=== PATIENT | male | born 2000 | race Caucasian/White ===

== ENCOUNTER 2021-04-17 10:52 | Emergency (ER) | payer BC, SELFPAY ==
--- NOTE | ~2021-04-17 | CT_ITS ---
EXAMINATION: CT LUMBAR SPINE WITHOUT CONTRAST CLINICAL INFORMATION: Lifting injury COMPARISON: None TECHNIQUE: Axial images through the lumbar spine without contrast. Sagittal and coronal reconstructions on the technologist workstation were performed. This CT examination was performed using dose optimization techniques as appropriate, variously including the following: *Automated exposure control *Adjustment of mA and/or kV according to patient size (this includes techniques or standardized protocols for targeted exams where dose is matched to indication/reason for exam; i.e. extremities or head) *Use of iterative reconstruction technique DLP; 489 mGy-cm FINDINGS: Bone alignment is normal. No fracture or dislocation is seen. Spinal levels: T12-L1: Normal. L1-L2: Normal. L2-L3: Normal. L3-L4: Normal. L4-L5: There is broad-based diffuse disc bulge. No disc herniation is seen. Spinal canal, lateral recesses and neural foramen are patent. L5-S1: There is broad-based diffuse disc bulge. There may be a small left paracentral disc herniation. Spinal canal, lateral recesses and neural foramen are patent. Paraspinal soft tissues are normal. The bladder is well-distended. CT/CT lumbar spine wo con IMPRESSION: Diffuse disc bulge at L4-L5 and diffuse disc bulge and question small left paracentral disc herniation at L5-S1. Very distended bladder.
[2021-04-17 10:58] VITALS: BP 127/55; PULSE 80; RESP 18; TEMP 36.5; BMI 28.0
[2021-04-17] MEDS: NaPROXEN 500 MG TABLET PO (11:58)
[2021-04-17] MEDS: diazePAM 5 MG TABLET PO (11:58)
[2021-04-17 12:00] VITALS: PULSE 70; RESP 19; TEMP 36.4; O2SAT 99
--- NOTE | 2021-04-17 12:55 | ED_ITS ---
HPI - Back Pain/Injury General Chief Complaint: Back Pain/Injury Stated Complaint: back inj Time Seen by Provider: 04/17/21 11:09 Source: patient Mode of arrival: ambulatory Limitations: no limitations History of Present Illness HPI Narrative: 20-year-old male presenting to the ED with his mother at bedside after he was lifting weights approximately 255 lb yesterday when he had sudden onset of lower back pain worse on the left radiating to his left buttocks/left eye worse with walking mild relief which is laying down flat. Denies any other symptoms complaints or concerns related to this. MD elicited complaint: back pain and back injury Pertinent past history: recent trauma (lifting 255 lbs weight ) Onset (ago): day(s) (Since yesterday) Timing: constant and progressively worsening Severity: severe Pain scale (0-10): 10 Similar Symptoms Previously: No Quality: sharp, aching, spasming and throbbing Location: lumbar spine Radiation: buttocks and left upper leg Exacerbating factors: walking Relieving factors: immobilization and supine Context: while lifting Associated symptoms: numbness (To the left buttock/left upper leg) Work related injury: No Related Data Previous Rx's Medication Instructions Recorded acetaminophen 500 mg tablet 1,000 mg PO QID PRN #14 tab 04/17/21 (Tylenol Extra Strength) diazepam 10 mg tablet (Valium) 10 mg PO TID PRN #14 tab 04/17/21 lidocaine 5 % topical patch 1 patch TOPICAL DAILY #15 ea 04/17/21 (Lidoderm) naproxen 500 mg tablet 500 mg PO BID PRN #10 tab 04/17/21 oxycodone 5 mg tablet 5 mg PO Q6H PRN #14 tab 04/17/21 prednisone 20 mg tablet 40 mg PO DAILY 5 Days #10 tab 04/17/21 Allergies Allergy/AdvReac Type Severity Reaction Status Date / Time No Known Allergies Allergy Verified 04/17/21 11:09 Review of Systems Review of Systems: Constitutional : No trauma, No Weight loss, No Fever, No Chills, ENT/Mouth : No Hearing loss, No Ear Pain, No Nasal Congestion, No Sinus Pain, No Hoarseness, No sore throat, No Rhinorrhea, No Swallowing Difficulty Cardiovascular : No Chest Pain, No SOB Respiratory : No Cough, No Dyspnea Gastrointestinal : No Nausea, No Vomiting, No Diarrhea, No abdominal Pain, No Hematochezia, No Melena Genitourinary : No Dysuria, No Urinary Frequency, No Hematuria, No Urinary or Bowel Incontinence/retention Musculoskeletal : + Back pain, No neck pain, No joint stiffness, No joint swelling Skin : No Skin Lesions, No rash or signs of infection Neuro : No Weakness, + radiation, + Numbness, + Paresthesias, No headache, no loss of bowel or bladder incontinence, no saddle anesthesia, Focal weakness, No radiation Denies history of IV drug usage. Yes all other systems are reviewed and are negative [facility] Past Medical History Attestation statement: The following information was validated with the patient. Social History Social History Advance Directives: No Advance Directives Information Provided: No Physical Exam Vital Signs: Vital Signs: Last Vital Signs Temp 97.7 F 04/17/21 10:58 Pulse 80 04/17/21 10:58 Resp 18 04/17/21 10:58 BP 127/55 L 04/17/21 10:58 Body Mass Index 28.0 vital signs have been reviewed as normal and appeared to be correct. Blood pressure normal. Heart rate normal. Respiration rate normal. Temperature normal. Oxygen saturation normal. Appearance: Alert. Oriented X3. No acute distress. Head: Normal external exam. Normocephalic. Atraumatic. Eyes: PERRLA. EOMI. Conjunctiva and sclera normal. Eyelids normal. ENT: Pharynx normal. Uvula midline. Moist mucous membranes. Neck: Normal inspection. Neck supple. FROM. No adenopathy. Thyroid Normal. No meningeal signs. No neck mass noted. CVS: Normal heart rate and rhythm. Heart sound normal. No murmurs noted. Pulses normal throughout. Respiratory: No respiratory distress. Painless inspiration. Breath sounds normal. No wheezes/rales/rhonchi noted. Chest nontender. No accessory muscle usage noted or decreased air movement noted. Abdomen: Soft and nontender. Bowel sounds normal in all 4 quadrants. No distention noted. No organomegaly noted. No visible injury noted. Back: No CVA tenderness. Full range of motion noted. No obvious deformities, or edema. Mild para-spinal muscular tenderness from lumbar region to coccyx. Full ROM in back and lower extremities. 5/5 strength hip extension/flexion, abduction, adduction. Mild Lumbar pain with hip flexion against resistance. Straight leg raise test negative on right; Straight leg raise test positive on left; Reflexes normal ankle and knee bilaterally; EHL motor strength normal bilaterally. No rashes/lesion/induration/fluctuance or signs infection noted. Skin: Skin warm and dry. Normal skin color. Normal skin turgor. No rashes/lesions/lacerations noted. Extremities: No lower extremity edema. Extremities exhibit normal range of motion. Extremities nontender. Neuro: Oriented X 3. No motor deficit. No sensory deficit. Reflexes normal. Patient has a normal steady gait. Course Course Course Narrative: Pt c likely muscular pain, but could be herniated disc. Neuro exam shows no deficits. Not c/w AAA/epidural abscess/dissection.No high risk Hx (Incont, fever, immunosupp, recent surgery/LP, coag, signif trauma, wt loss, puls mass, hx/o Ca, TB, or IVDU) to warrant MRI. Not c/w Pyelo/UTI/kidney stone/spinal fx. Not cauda equina syndrome. CT scan of lumbar spine obtained and revealed disc bulging otherwise no other acute processes. I gave a copy of the results to the patient. He also urinated approximately 500-600 mL while in the room. He denies any other symptoms such as urinary or bowel incontinence. He has full sensation of all extremities and reflexes are normal. Therefore at this time will DC home with symptomatic treatment instructions to follow up with primary care provider for referral to a orthopedic operations and maintenance specialist. Patient and mother at bedside understand and agree this plan. MDM - Back Pain/Injury Medical Records Attestation: I reviewed the patient's medical records. Imaging Data Lumbar spine x-ray: Attestation: I personally reviewed and interpreted this imaging study as follows: Radiologist's impression: FINDINGS: Bone alignment is normal. No fracture or dislocation is seen.? Spinal levels: T12-L1: Normal.? L1-L2: Normal.? L2-L3: Normal.? L3-L4: Normal.? L4-L5: There is broad-based diffuse disc bulge. No disc herniation is seen. Spinal canal, lateral recesses and neural foramen are patent. L5-S1: There is broad-based diffuse disc bulge. There may be a small left paracentral disc herniation. Spinal canal, lateral recesses and neural foramen are patent. Paraspinal soft tissues are normal. The bladder is well-distended. CT/CT lumbar spine wo con IMPRESSION: Diffuse disc bulge at L4-L5 and diffuse disc bulge and question small left paracentral disc herniation at L5-S1. Very distended bladder. Discharge Plan Discharge Clinical Impression: Lumbar radiculopathy, Sciatica, Lumbar herniated disc Patient Disposition: Home, Self-Care Instructions: Sciatica (ED), Lumbar Radiculopathy (ED), Lower Back Exercises (ED) Prescriptions: New prednisone 20 mg tablet 40 mg PO DAILY 5 Days Qty: 10 RF: 0 acetaminophen [Tylenol Extra Strength] 500 mg tablet 1,000 mg PO QID PRN (Reason: fever or pain) Qty: 14 RF: 0 lidocaine [Lidoderm] 5 % adhesive patch,medicated 1 patch topical DAILY Qty: 15 RF: 0 diazepam [Valium] 10 mg tablet 10 mg PO TID PRN (Reason: muscle spasm) Qty: 14 RF: 0 naproxen 500 mg tablet 500 mg PO BID PRN (Reason: pain) Qty: 10 RF: 0 oxycodone 5 mg tablet 5 mg PO Q6H PRN (Reason: pain) Qty: 14 RF: 0 Referrals: Physician,Nonstaff [Primary Care Provider] - 2 days (your pcp) Stand Alone Forms: Work/School Release Print Language: Thai
[2021-04-17 13:02] VITALS: RESP 18
== END 2021-04-17 13:20 | disposition home or self-care (01) ==
PROVIDERS: Emergency Provider Emergency Medicine
DX: M51.16 Intervertebral disc disorders with radiculopathy, lumbar region (principal)
CPT/HCPCS: 72131; 99284